=== PATIENT | female | born 1995 | race Caucasian/White ===

== ENCOUNTER 2017-03-20 03:37 | Emergency (ER) | payer OTHER | END 2017-03-20 06:28 | disposition home or self-care (01) | DX: O20.0 Threatened abortion (principal); Z3A.09 9 weeks gestation of pregnancy ==

== ENCOUNTER 2017-08-24 11:22 | Outpatient (CLI) | payer OTHER ==
[2017-08-24 12:10] LABS: GTT GLUCOSE,FASTING 77 mg/dL (70-100)
== END 2017-08-24 11:23 | disposition home or self-care (01) ==
LOC: LAB 11:22
PROVIDERS: ATTEND Registered Nurse
DX: Z36.89 Encounter for other specified antenatal screening (principal)
CPT/HCPCS: 36415; 82951; 86762

== ENCOUNTER 2017-09-12 14:55 | Outpatient (CLI) | payer OTHER | END 2017-09-12 14:56 | disposition home or self-care (01) | LOC: LAB.R 14:55 | PROVIDERS: ATTEND Nurse Practitioner Obstetrics & Gynecology | DX: R82.90 Unspecified abnormal findings in urine (principal) | CPT/HCPCS: 87086 ==

== ENCOUNTER 2017-09-25 08:00 | Outpatient (CLI) | payer OTHER | END 2017-09-25 08:01 | disposition home or self-care (01) | LOC: LAB.R 08:00 | PROVIDERS: ATTEND Nurse Practitioner Obstetrics & Gynecology | DX: Z36.85 Encounter for antenatal screening for Streptococcus B (principal) | CPT/HCPCS: 87081 ==

== ENCOUNTER 2017-10-26 01:27 | Inpatient (IN) | payer OTHER ==
[2017-10-26 04:11] LABS: BASOPHILS % (AUTO) 0.3 %; EOSINOPHILS # (AUTO) 0.2 10^3/uL (0.0-0.7); EOSINOPHILS % (AUTO) 1.4 %; HGB - HEMOGLOBIN 13.1 g/dL (12.0-16.0); LYMPHOCYTES # (AUTO) 2.8 10^3/uL (1.5-3.5); LYMPHOCYTES % (AUTO) 23.8 %; MEAN CORPUSCULAR HEMOGLOBIN 30.8 pg (27.0-31.0); MEAN CORPUSCULAR HGB CONC 33.7 g/dL (32.0-36.0); MEAN CORPUSCULAR VOLUME 91.4 fL (81.0-99.0); MEAN PLATELET VOLUME 7.6 fL (7.9-10.8); MONOCYTES % (AUTO) 8.9 %; NEUTROPHILS # (AUTO) 7.6 10^3/uL (1.5-6.6); NEUTROPHILS % (AUTO) 65.6 %; PLT - PLATELET COUNT 205 10^3/uL (130-450); RED BLOOD COUNT 4.26 10^6/uL (4.20-5.40); RED CELL DISTRIBUTION WIDTH 13.9 % (12.0-15.0); WHITE BLOOD COUNT 11.6 x10^3/uL (4.8-10.8)
--- NOTE | 2017-10-26 08:07 | HISTORY & PHYSICAL EXAMINATION ---
Admit History - Instructions [place]/Slash: -Left hand click circles element as positive or present. -Right hand click slashes element as negative or not present. - Visit Reason Visit Reason: Membranes rupture - : 1 Parity: 0 Premature: 0 Ectopic: 0 : 0 Care: positive: [facility] Risk/History: positive: None Complications This : positive: None Smoking Status: Never smoker - Mother's Labs Mother's Blood Type: positive: A Mother's RH: positive: Positive GBS: positive: Group B Step Negative Rubella Status: positive: Immune - Other Maternal History Other Maternal History: HPI: This 22yo at 40.3wks gestation by L=10wk U/S who present with spontaneous rupture of membranes. She reports a large gush of clear fluid 0043 on 10/26/2017. Upon evaluation she was noted to be 4/80/-2, and have grossly ruptured membranes. She was admitted to L&D for management. She reports pos movement, contractions every 5-8 minutes. 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 surgeries - none No hx abnormal paps PMH: anxiety Surg Hx: non Social Hx: to [place], never smoker, No IVDA or ETOH use Family Hx: Colon cancer - maternal GF, Stroke - mother >65yo Meds: PNV, ranitidine Allergies: NKA Physical Exam: Heart RRR w/o M/G/R, lungs CTAB Abdomen gravid, soft, nontender FHT's baseline 120s, moderate variability, + accels, no decels EFW 7.5lbs SVE 4/90/-2, soft, anterior, vertex SROM x 7hrs Labs: Blood type A pos, antibody neg Hgb 13.1, Hct 38.5, PLT 221 Rubella immune HIV non-reactive Hep B neg, Hep C neg, Hep A neg RPR non-reactive Genetic Testing: Serum integrated screen: neg 05/11/2017 1 hour GTT 132 3 hour GTT 77; 150; 117; 106 GBS negative Immunizations: Tdap 07/19/2017 Influenza 07/19/2017 Ultrasounds: 06/12/2017: FAS WNL, anterior placenta, grade 0, no previa, cervix closed 4.4cm in length, VENKATESH WNL 06/22/2017: 22 wks, RUQ pain U/S. Normal RUQ abdominal u/s. Mild R hydronephrosis, likely related to . Assessment: 22yo @ 40.3wks gestation by L=10wk U/S SROM x 7 hours GBS negative early labor Desires natural labor Desires future fertility Plan: Initiate pitocin per protocol Encouarged position changes Reevaluate in 4 hours or sooner PRN. Meds/Allgy - Home Medications Home Medications: Ambulatory Orders Medication Instructions Recorded Confirmed Pnv No.122/Iron/Folic Acid 1 tab ORAL DAILY 03/20/17 03/20/17 [ Multi Tablet] - Allergies Allergies/Adverse Reactions: Allergies Allergy/AdvReac Type Severity Reaction Status Date / Time No Known Drug Allergies Allergy Verified 03/20/17 03:48 Physical - Abdominal Exam Vital Signs: Temp Pulse Resp BP Pulse Ox 36.6 C 98 18 111/67 99 10/26/17 05:00 10/26/17 05:00 10/26/17 05:00 10/26/17 05:00 10/26/17 05:00
--- NOTE | 2017-10-26 08:19 | PROVIDER PROGRESS NOTE ---
Labor Progress Note - Uterine Monitoring Uterine Monitoring Mode: positive: External toco Contraction Frequency (min/apart): 3-6 Contraction Intensity: positive: Mild to moderate Uterine Resting Tone: positive: Soft - Monitoring Monitor Mode: positive: External ultrasound Heart Rate Baseline: 120 Heart Rate Variability: positive: Moderate (6-25 bmp) Accelerations: positive: Present, 15x15 Decelerations: positive: None - Vaginal Exam Dilation (in cm): 4 Effacement (%): 90 Station: -2 Cervical Position: Anterior - Labor Progress Note Labor Progress Note/Additional Text: S: Feeling contractions but minimal discomfort. She reports some anxiety about the discomforts of labor to come. Nervous about starting Pitocin but agrees and desires this is the best choice at this time. and MIL supportive at bedside. O: FHR baseline 120's, moderate variability, + accels, no decels. Contractions palpate moderate every 3-7 minutes lasting 50-90 seconds with soft resting tone. SVE 4/90/-2 A: 22yo @ 40.3wks gestation by L=10 SROM x 7hrs Early labor Cervix unchanged from admission P: Initiate pitocin per protocol - reviewed risks vs benefits and my recommendations with the patient and her family. Continuous monitoring Encouraged position changes and ambulation Reevaluate in 4 hours or sooner PRN.
[2017-10-26] MEDS: OXYTOCIN/SODIUM CHLORIDE 250 ML IV SCH (08:54)
[2017-10-26] MEDS: SODIUM CHLORIDE FLUSH 0.9% 10 ML SYRINGE IVP PRN ×2 (08:55→19:50)
[2017-10-26] MEDS: LACTATED RINGERS 1,000 ML IV SCH ×3 (08:55→22:50)
[2017-10-26] MEDS ORDERED: HYDROmorphone 1 MG/ML CARPUJECT IVP ONE (11:07)
[2017-10-26] MEDS ORDERED: fentaNYL 250 MCG/5 ML VIAL ONE (12:24)
[2017-10-26] MEDS ORDERED: BUPIVACAINE 0.75% MPF 30 ML VIAL ONE (12:24)
--- NOTE | 2017-10-26 13:14 | PROVIDER PROGRESS NOTE ---
Labor Progress Note - Uterine Monitoring Uterine Monitoring Mode: positive: External toco Contraction Frequency (min/apart): 2-3 Contraction Intensity: positive: Strong Uterine Resting Tone: positive: Soft - Monitoring Monitor Mode: positive: External ultrasound Heart Rate Baseline: 120 Heart Rate Variability: positive: Moderate (6-25 bmp) Accelerations: positive: Present, 15x15 Decelerations: positive: Early - Vaginal Exam Dilation (in cm): 6 Effacement (%): 90 Station: 0 Cervical Position: Anterior - Labor Progress Note Labor Progress Note/Additional Text: S: Feeling significant rectal pressure with contractions that feel like a bowel movement. She is currently laying comfortably in bed with epidural in place. Starting to experience relief from pain secondary to recent epidural placement. Reports feeling tired and relieved now that she has her epidural. and MIL supportive at the bedside. O: FHR baseline 120s, moderate variability, +accels, occasional early decels. Contractions palpate firm every 2-3 minutes lasting approximately 60 seconds. SVE 6/90/0, anterior A: 22yo @ 40.3wks gestation by L=10wk U/S Active labor SROM x 12 hours GBS neg Epidural in place for pain management P: Continue active management. Titrate pitocin per protocol. Anticipate spontaneous vaginal delivery Reevaluate in 2 hours or sooner PRN.
[2017-10-26] MEDS ORDERED: TERBUTALINE 1 MG/ML VIAL SUBQ ONE (15:18)
[2017-10-26] MEDS ORDERED: LACTATED RINGERS 1,000 ML IV ONE ×2 (16:05→16:46)
[2017-10-26] MEDS ORDERED: ceFAZolin 1 GM VIAL IV ONE (16:30)
[2017-10-26] MEDS ORDERED: OXYTOCIN 10 UNIT/ML VIAL IV ONE (16:30)
[2017-10-26] MEDS ORDERED: ONDANSETRON 4 MG/2 ML VIAL IVP ONE (16:30)
[2017-10-26] MEDS ORDERED: LIDOCAINE-MPF 2% 5 ML VIAL IM ONE (16:30)
[2017-10-26] MEDS ORDERED: fentaNYL 100 MCG/2 ML VIAL IVP ONE (16:30)
[2017-10-26] MEDS ORDERED: METOPROLOL 5 MG/5 ML VIAL IVP ONE (16:30)
[2017-10-26] MEDS ORDERED: ESMOLOL 100 MG/10 ML VIAL IVP ONE (16:30)
--- NOTE | 2017-10-26 17:40 | PROVIDER PROGRESS NOTE ---
Subjective - Subjective Subjective: Arrived at patient's bedside at approximately 1449 and an FSE was placed secondary to inability to distinctly differentiate maternal and heart rate. SVE revealed 7-8cm dilated/100/0. It became apparent at that time that the FHR pattern was demonstrating recurrent late decelerations into the 70's - 80's. Maternal O2 was placed, IV fluid was bolused, and she was rotated right, then left, and pitocin was turned off. Dr. Dunlap attending physician was called to the bedside. Terbutaline 0.25mg was given SQ at 0.25mg. Dr. Dunlap arrived at the bedside at 1523 and the OR team was called for a STAT delivery. Care was handed over to Dr. Dunlap attending physician whom appropriately consented the patient for delivery at that time. Objective - Vital Signs/Intake & Output Intake & Output: Intake & Output 10/23/17 10/24/17 10/25/17 10/26/17 23:59 23:59 23:59 23:59 Intake Total 540 Balance 540 - Lab Results Fish Bones: 10/26/17 03:10 Other Labs: Lab Results x24hrs 10/26/17 Range/Units 03:10 WBC 11.6 H (4.8-10.8) x10^3/uL RBC 4.26 (4.20-5.40) 10^6/uL Hgb 13.1 (12.0-16.0) g/dL Hct 38.9 (37.0-47.0) % MCV 91.4 (81.0-99.0) fL MCH 30.8 (27.0-31.0) pg MCHC 33.7 (32.0-36.0) g/dL RDW 13.9 (12.0-15.0) % Plt Count 205 (130-450) 10^3/uL MPV 7.6 L (7.9-10.8) fL Neut # 7.6 H (1.5-6.6) 10^3/uL Lymph # 2.8 (1.5-3.5) 10^3/uL [place] # 1.0 (0.0-1.0) 10^3/uL Eos # 0.2 (0.0-0.7) 10^3/uL Baso # 0.0 (0.0-0.1) 10^3/uL Absolute Nucleated RBC 0.01 x10^3/uL Nucleated RBC % 0.0 /100WBC
[2017-10-26] MEDS ORDERED: diphenhydrAMINE INJ 50 MG/ML VIAL IVP PRN ×2 (17:42→21:00)
[2017-10-26] MEDS ORDERED: SODIUM CHLORIDE FLUSH 0.9% 10 ML SYRINGE IVP PRN (17:42)
[2017-10-26] MEDS ORDERED: oxyCODONE 5 MG TABLET PO PRN (17:42)
[2017-10-26] MEDS ORDERED: ONDANSETRON 4 MG/2 ML VIAL IVP PRN (17:42)
[2017-10-26] MEDS ORDERED: IBUPROFEN 800 MG TABLET PO SCH (18:00)
--- NOTE | 2017-10-26 18:02 | OPERATIVE REPORT ---
Operative Report - General Admit Date: 10/26/17 Procedure Date: 10/26/17 Planned Procedure: LTC/S Pre-Op Diagnosis: Same Procedure Performed: Primary Low Transverse C/Section Post Op Diagnosis: LOP - Procedure Note Primary Surgeon: Norbert Dunlap MD Secondary Surgeon: Tiffanie Parkinson Anesthesia Provider: Kevin George Anesthesia Technique: Epidural Pathology: Placenta IV Fluids (mL): 1,500 Estimated Blood Loss (mL): 700 Drain/Tube Type: Other (Wound Vac)
[2017-10-26] MEDS: KETOROLAC 30 MG/ML VIAL IV SCH (19:50)
[2017-10-26] MEDS: SODIUM CHLORIDE FLUSH 0.9% 10 ML SYRINGE IVP SCH ×4 (19:50→22:16)
[2017-10-26] MEDS ORDERED: HYDROmorphone 1 MG/ML SYRINGE IVP PRN (20:59)
[2017-10-26] MEDS ORDERED: MORPHINE 2 MG/ML CARPUJECT IVP PRN (21:00)
[2017-10-26] MEDS ORDERED: diphenhydrAMINE 25 MG CAPSULE PO PRN (21:00)
[2017-10-26] MEDS ORDERED: NALOXONE 0.4 MG/ML VIAL IVP PRN (21:00)
[2017-10-26] MEDS ORDERED: NALBUPHINE 20 MG/ML AMP IVP PRN (21:00)
[2017-10-26] MEDS ORDERED: METOCLOPRAMIDE 10 MG/2 ML VIAL IVP PRN (21:00)
[2017-10-26] MEDS: ACETAMINOPHEN 500 MG TABLET PO SCH (21:19)
[2017-10-26] MEDS: SIMETHICONE CHEW 80 MG TABLET PO SCH (22:09)
[2017-10-27] MEDS ORDERED: IOPAMIDOL-300 100 ML VIAL ONE (00:03)
--- NOTE | 2017-10-27 00:04 | PROVIDER PROGRESS NOTE ---
Subjective - General Admit Date: 10/26/17 Procedure Date: 10/26/17 Post Op Days: 1 - Review of Systems Cardiovascular: positive: Chest pain (Pt C/O CP onset about 2237. Naldo dyspnea.) Psychiatric: positive: Anxiety (Chronic anxoiuity) Objective - Patient Data Reviewed Vital Signs: Yes Vital Signs: Vital Signs x48h Temp Pulse Pulse Resp BP Pulse Ox 10/26/17 23:54 120 H 97/57 L 100 10/26/17 23:30 133 H 87/48 L 100 10/26/17 23:15 124 H 99/56 L 100 10/26/17 23:00 129 H 16 103/56 L 100 10/26/17 22:59 124 H 107/59 L 98 10/26/17 22:52 127 H 28 H 100/60 99 10/26/17 22:40 125 H 24 93/53 L 98 10/26/17 21:00 36.8 C 126 H 16 91/51 L 99 10/26/17 20:00 120 H 16 103/60 100 10/26/17 19:30 36.8 C 127 H 16 105/61 100 10/26/17 19:15 122 H 120 H 16 108/59 L 100 10/26/17 19:00 120 H 16 113/61 100 10/26/17 18:46 36.7 C 121 H 16 109/62 10/26/17 18:30 127 H 16 106/61 98 10/26/17 18:09 121 H 16 121/67 100 10/26/17 17:56 100 10/26/17 17:50 99 10/26/17 17:45 100 10/26/17 17:40 99 10/26/17 17:35 99 10/26/17 17:30 99 10/26/17 17:25 99 Weight: Weight 10/25/17 10/26/17 10/27/17 23:59 23:59 23:59 Weight (kg) 95.254 kg Intake & Output: Intake and Output Totals x24h 10/25/17 10/26/17 10/27/17 23:59 23:59 23:59 Intake Total 1540 Output Total 400 Balance 1140 - Lab Results Lab Results: 10/26/17 03:10 Other Lab Results: Lab Results x24hrs 10/26/17 Range/Units 03:10 WBC 11.6 H (4.8-10.8) x10^3/uL RBC 4.26 (4.20-5.40) 10^6/uL Hgb 13.1 (12.0-16.0) g/dL Hct 38.9 (37.0-47.0) % MCV 91.4 (81.0-99.0) fL MCH 30.8 (27.0-31.0) pg MCHC 33.7 (32.0-36.0) g/dL RDW 13.9 (12.0-15.0) % Plt Count 205 (130-450) 10^3/uL MPV 7.6 L (7.9-10.8) fL Neut # 7.6 H (1.5-6.6) 10^3/uL Lymph # 2.8 (1.5-3.5) 10^3/uL Scott # 1.0 (0.0-1.0) 10^3/uL Eos # 0.2 (0.0-0.7) 10^3/uL Baso # 0.0 (0.0-0.1) 10^3/uL Absolute Nucleated RBC 0.01 x10^3/uL Nucleated RBC % 0.0 /100WBC - Current Medications Current Medications: Current Medications Generic Name Dose Route Start Last Admin Trade Name Freq PRN Reason Stop Dose Admin Acetaminophen 1,000 mg 10/26/17 18:00 10/26/17 21:19 Tylenol PO Not Given Q8H DANIEL Oxytocin/Sodium Chloride 250 mls @ 1 mls/hr 10/26/17 08:00 10/26/17 08:54 Pitocin/Sodium Chloride IV 1 milliunit/min TITR DANIEL 1 mls/hr Protocol Administration 1 MILLIUNIT/MIN Lactated Ringer's 1,000 mls @ 100 mls/hr 10/26/17 18:00 10/26/17 22:50 Lr IV 150 mls/hr .Q10H DANIEL Administration Ibuprofen 800 mg 10/26/17 18:00 10/26/17 21:15 Motrin PO Not Given Q6H DANIEL Ketorolac Tromethamine 30 mg 10/26/17 18:00 10/26/17 19:50 Toradol Inj IV 10/27/17 12:01 30 mg Q6H DANIEL Administration Simethicone 80 mg 10/26/17 22:00 10/26/17 22:09 Mylicon PO 80 mg TID DANIEL Administration Sodium Chloride 10 ml 10/26/17 02:20 10/26/17 19:50 Normal Saline Flush 0.9% IVP 10 ml PRN PRN Administration NEEDED PER PROVIDER ORDERS Sodium Chloride 10 ml 10/26/17 06:00 10/26/17 22:15 Normal Saline Flush 0.9% IVP Not Given Q8HR DANIEL Sodium Chloride 10 ml 10/26/17 22:00 10/26/17 22:16 Normal Saline Flush 0.9% IVP Not Given Q8HR DANIEL - Physical Exam General Appearance: positive: No acute distress, Alert Respiratory: positive: Chest non-tender, No respiratory distress, Breath sounds nml Cardiovascular: positive: Regular rate & rhythm, No murmur, No gallop Extremities: negative: Calf tenderness, Ismael's sign/cords Impression/Plan - Problem List Problem List: Pt is a 22 yo ,SP C/S 1600 today. EKG Sinus tac. Hx of sinus tac all day to day. Good urine out put. Will do CT angio. R/O PE.
[2017-10-27] MEDS: SODIUM CHLORIDE FLUSH 0.9% 10 ML SYRINGE IVP PRN ×2 (00:19→01:42)
[2017-10-27 00:26] LABS: BASOPHILS % (AUTO) 0.1 %; EOSINOPHILS % (AUTO) 0.2 %; LYMPHOCYTES # (AUTO) 1.5 10^3/uL (1.5-3.5); LYMPHOCYTES % (AUTO) 12.8 %; MEAN CORPUSCULAR HEMOGLOBIN 31.2 pg (27.0-31.0); MEAN CORPUSCULAR HGB CONC 34.1 g/dL (32.0-36.0); MEAN CORPUSCULAR VOLUME 91.4 fL (81.0-99.0); MONOCYTES # (AUTO) 0.9 10^3/uL (0.0-1.0); MONOCYTES % (AUTO) 7.3 %; NEUTROPHILS # (AUTO) 9.5 10^3/uL (1.5-6.6); NEUTROPHILS % (AUTO) 79.6 %; PLT - PLATELET COUNT 152 10^3/uL (130-450); RED BLOOD COUNT 3.54 10^6/uL (4.20-5.40); WHITE BLOOD COUNT 11.9 x10^3/uL (4.8-10.8)
[2017-10-27 00:36] LABS: CALCIUM 8.7 mg/dL (8.5-10.3); CREATININE 0.5 mg/dL (0.4-1.0)
[2017-10-27] MEDS ORDERED: IOPAMIDOL-300 100 ML VIAL IVP ONE (01:01)
[2017-10-27] MEDS ORDERED: GI COCKTAIL 120 ML BOTTLE PO PRN (01:31)
[2017-10-27] MEDS: KETOROLAC 30 MG/ML VIAL IV SCH ×3 (01:41→14:16)
[2017-10-27 02:01] LABS: TROPONIN I < 0.04 ng/mL (<0.49)
[2017-10-27 02:03] LABS: CREATINE KINASE MB 0.7 ng/mL (0.6-6.3)
--- NOTE | 2017-10-27 02:06 | CT Preliminary Report ---
Exam: CT CHEST ANGIO (PE) IMPRESSION: Negative pulmonary CT angiogram. No pulmonary emboli. [facility] SITE ID: [id number]
--- NOTE | 2017-10-27 02:19 | CT Report ---
EXAM: CT ANGIOGRAM CHEST EXAM DATE: 10/27/2017 01:01 AM. CLINICAL HISTORY: Substernal chest pain post section. COMPARISON: None. TECHNIQUE: Routine helical imaging was performed through the chest in the pulmonary arterial phase. I V Contrast: Yes. Reconstructions: Coronal 3-D MIP reconstructions.Sagittal and coronal. In accordance with CT protocol optimization, one or more of the following dose reduction techniques w ere utilized for this exam: automated exposure control, adjustment of mA and/or KV based on patient s ize, or use of iterative reconstructive technique. FINDINGS: Pulmonary Arteries: Technically adequate for evaluation through the segmental arteries. No evidence f or acute or chronic pulmonary emboli. Lungs/Pleura: No pneumonia, suspicious nodules, or edema. No effusions or pneumothorax. Mediastinum: No acute aortic syndrome. No cardiac enlargement. No adenopathy. Upper Abdomen: Unremarkable with exception of postoperative pneumoperitoneum. Other: None. IMPRESSION: Negative pulmonary CT angiogram. No pulmonary emboli. [facility] Referring Provider Line: [phone] SITE ID: [id number]
--- NOTE | 2017-10-27 05:01 | OPERATIVE REPORT ---
DATE OF SERVICE: 10/26/2017 Physician: Norbert Dunlap MD PREOPERATIVE DIAGNOSES 1. A 40-week gestation. 2. Spontaneous rupture of membranes. 3. Repetitive deep decelerations with late decelerations. POSTOPERATIVE DIAGNOSES 1. A 40-week gestation. 2. Spontaneous rupture of membranes. 3. Repetitive deep decelerations with late decelerations. NAME OF PROCEDURE: Primary low transverse section. SURGEON: Norbert Dunlap MD WOOD SCIENCE PROFESSOR: Tiffanie Parkinson, Certified Nurse Electrical Electronics Engineer ANESTHESIA: Epidural with Kevin George. ESTIMATED BLOOD LOSS: 700 mL. FINDINGS: Live female infant, Apgars 9 and 9, left occiput posterior, clear amniotic fluid. PROCEDURE: Following adequate epidural anesthesia, the patient was in the supine position with a roll under her right hip. SCDs were placed. A Ann catheter was placed and she was administered 3 grams of Ancef preoperatively. At this point, timeout was performed, and then a Pfannenstiel incision was carried down through subcutaneous tissue to the fascia. The fascia was incised transversely then, using both blunt and sharp dissection, it was freed from rectus abdominis and pyramidalis. The rectus was then split along the midline. Peritoneum was entered high. Care was taken to avoid injury to bowel or bladder. At this point, the incision was carried superiorly and inferiorly. A bladder retractor was placed and the bladder flap was developed using both blunt and sharp dissection. The low transverse uterine incision was accomplished using a #10 blade and bandage scissors. At this point, the amniotic membranes were ruptured, noted to be clear. The head of the was lifted out of the pelvis and delivered. The oropharynx was bulb suctioned. The remainder of the was delivered without difficulty. The cord was doubly clamped, divided, and the infant was handed to the nurse who was standing by. At this point, cord blood samples were obtained and , because the infant was vigorous, no cord gases were obtained. The placenta was manually delivered. The uterus was exteriorized, wrapped in a moist lap, and cleansed in the internal portion with a dry lap. The lower portion of the incision was grasped with ring forceps. Following this, the incision was closed using 0 Vicryl in a running locking suture. This was imbricated with #0 Vicryl. There was some difficulty with some bleeding at the left side of the incision, so this area first enforced with several sutures of 0 Vicryl. Good hemostasis was observed. A moist lap was then placed over this incision. The uterus was tilted forward. The cul -de-sac was irrigated free of any clots. Prior to this, an estimated blood loss was obtained. The uterus was then delivered back in the abdominal cavity. The gutters were both bilaterally irrigated and the peritoneum was closed using 2-0 Vicryl. The fascia itself was closed using looped PDS and then subcutaneous tissue was closed using 3-0 Vicryl. The incision itself was closed using Monocryl subcuticular, and then Mastisol and Steri-Strips were applied. A wound VAC was then applied. There was some difficulty to seal it at the inferior border. However , this responded to Mastisol, as well as reinforcement of the incision. At this point, the procedure was terminated. The patient was taken to Recovery in stable condition. Sponge and needle counts were correct. TD: 10/27/2017 04:53 ODALIS
[2017-10-27] MEDS: LACTATED RINGERS 1,000 ML IV SCH ×2 (05:11→18:16)
[2017-10-27] MEDS: ACETAMINOPHEN 500 MG TABLET PO SCH (05:43)
--- NOTE | 2017-10-27 06:03 | CONSULTATION NOTE ---
DATE OF SERVICE: 10/27/2017 Physician: Ann Root MD Consultation was requested from the cottage parent, Dr. Norbert Dunlap. REASON FOR CONSULTATION: To evaluate the patient for acute onset of chest pain and sustained tachycardia. HISTORY OF PRESENT ILLNESS AND HOSPITAL COURSE: The patient is a pleasant, 22- year-old, white female who was admitted on October 26 under the [facility] service, following spontaneous rupture of her membranes at about 40 weeks' gestation, and subsequently underwent C- section on October 26, due to heart rate decelerations on pitocin. was completed and reportedly it was an uncomplicated procedure with not much blood loss. Notably, even prior to the procedure and throughout the past 2 days' hospital stay, the patient remained tachycardic with heart rate around 110-120. Overnight, around midnight on October 26, I was called by Dr. Dunlap to evaluate this patient for chest pain. The patient developed a somewhat sudden onset of chest pain a couple of hours prior. She localized the pain to the mid epigastric area. The pain was dull, achy and constant. The patient did not appear anxious, but I was told that she does have history of anxiety. Interviewing her, she denied any associated symptoms such as shortness of breath and, other than the chest pain, she had no complaints. Regarding history of gastroesophageal reflux, throughout her she did have frequent reflux symptoms and sometimes she had acid actually regurgitating up to her mouth. Today, she did not have reflux or vomiting, and she felt that the chest pain was somewhat different than the chest discomfort she experienced with the reflux. Notably, she did gain 40 pounds during her . On further interview, she reports no history of hypercoagulable state. No history of clotting or bleeding disorders in her family. However, she does report multiple miscarriages in almost all female relatives, such as her mother had several miscarriages and all her sisters had miscarriages as well. Again, they however, did not have blood clots. Reviewing her hospital records, she was started on Pitocin/oxytocin per the OB/ [employer] [employer] service prior to her . PAST MEDICAL HISTORY: Nonsignificant. OUTPATIENT MEDICATIONS: vitamins. INPATIENT MEDICATIONS: Reviewed per electronic medical record. SOCIAL HISTORY: The patient does not smoke, does not use substances. Her is in the [place]. FAMILY HISTORY: As mentioned above, positive for miscarriages, but negative for a diagnosed hypercoagulable state or clotting disorders. REVIEW OF SYMPTOMS: Please see pertinent positives listed above at history of present illness. The patient did not report additional complaints of the 12-point review. EKG showed sinus tachycardia without ischemic sign. PHYSICAL EXAMINATION VITAL SIGNS: Temperature 36.7 Celsius, heart rate between 120 and 130, blood pressure between 80/50 and 100/60, respiratory rate 18; oxygen saturation 100% on 4 liters nasal cannula, 98% on room air. GENERAL: The patient is a well-developed female who was sitting up in bed, was not in distress. SKIN: No jaundice, no pallor. MUSCULOSKELETAL: No calf tenderness. LYMPHATIC: No significant lymphedema. ABDOMEN: With a fresh , abdomen. No significant tenderness. CARDIOVASCULAR: S1, S2. Regular, tachycardia. I could not hear a pathologic murmur. RESPIRATORY: Clear to auscultation without wheezes or crackles. NEUROLOGIC: Alert, oriented, nonfocal. PSYCHIATRIC: Cooperative. ASSESSMENT AND PLAN AND RECOMMENDATIONS: The patient is a young female status post section, POD 1, who developed chest discomfort. Besides the chest discomfort, she was found with sinus tachycardia. The tachycardia has been persistent since her admission from October 26. Most likely possibility would be patient having gastroesophageal reflux-like symptoms and tachycardia and episodes of hypotension caused by oxytocin/Pitocin infusion. Considering, however, that could create a hypercoagulable state and the patient does have some risk factors in her history such as female family members with miscarriages which could point to hypercoagulable state or genetic disorder, there is a risk for this patient to have thromboembolic complication. Therefore, I discussed with Dr. Dunlap and recommended to proceed with CT angiography of the chest. Depending on the CT result, further plan will be discussed. In particular, if no pulmonary embolism, then I would treat for gastroesophageal reflux and, given the sustained tachycardia, I would also check cardiac markers. IV hydration is already provided. If pulmonary embolism is found, then obviously the patient will need to be anticoagulated, and risks and benefits regarding bleeding postsurgically was already discussed with Dr. Dunlap. Thank you, Dr. Dunlap, to invite us to participate in the care of this very nice patient. The medical service will follow and discuss further. The time I spent in this consultation was 35 minutes. TD: 10/27/2017 06:02 MTDD
[2017-10-27] MEDS: oxyCODONE 10 MG/0.5 ML SYRINGE PO PRN ×5 (06:09→22:38)
[2017-10-27] MEDS: SIMETHICONE CHEW 80 MG TABLET PO SCH ×3 (06:09→22:08)
[2017-10-27 06:34] LABS: BASOPHILS % (AUTO) 0.2 %; EOSINOPHILS # (AUTO) 0.1 10^3/uL (0.0-0.7); EOSINOPHILS % (AUTO) 0.6 %; HGB - HEMOGLOBIN 10.6 g/dL (12.0-16.0); LYMPHOCYTES # (AUTO) 1.5 10^3/uL (1.5-3.5); LYMPHOCYTES % (AUTO) 12.8 %; MEAN CORPUSCULAR HEMOGLOBIN 30.5 pg (27.0-31.0); MEAN CORPUSCULAR HGB CONC 33.3 g/dL (32.0-36.0); MEAN CORPUSCULAR VOLUME 91.6 fL (81.0-99.0); MEAN PLATELET VOLUME 7.2 fL (7.9-10.8); MONOCYTES # (AUTO) 1.1 10^3/uL (0.0-1.0); MONOCYTES % (AUTO) 9.2 %; NEUTROPHILS # (AUTO) 8.9 10^3/uL (1.5-6.6); NEUTROPHILS % (AUTO) 77.2 %; PLT - PLATELET COUNT 156 10^3/uL (130-450); RED BLOOD COUNT 3.46 10^6/uL (4.20-5.40); RED CELL DISTRIBUTION WIDTH 13.9 % (12.0-15.0); WHITE BLOOD COUNT 11.6 x10^3/uL (4.8-10.8)
--- NOTE | 2017-10-27 08:05 | CONSULTATION NOTE ---
Referring Provider Name of Referring Provider:: Dr. 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 - POLST Patient has POLST: No Meds/Allgy - Home Medications Home Medications: Ambulatory Orders Medication Instructions Recorded Confirmed Pnv No.122/Iron/Folic Acid 1 tab ORAL DAILY 03/20/17 03/20/17 [ Multi Tablet] - Allergies Allergies/Adverse Reactions: Allergies Allergy/AdvReac Type Severity Reaction Status Date / Time No Known Drug Allergies Allergy Verified 03/20/17 03:48 Exam - Vital Signs Vital Signs: Vital Signs x48h Temp Pulse Resp BP Pulse Ox 10/27/17 04:04 36.9 C 125 H 16 97/56 L 98 10/27/17 01:08 36.7 C 129 H 18 105/59 L 98 Conclusion/Plan - Lab Results Fish Bones: 10/27/17 06:26 10/27/17 00:15
[2017-10-27] MEDS: SODIUM CHLORIDE FLUSH 0.9% 10 ML SYRINGE IVP SCH ×6 (08:51→22:09)
[2017-10-27] MEDS: OXYTOCIN/SODIUM CHLORIDE 250 ML IV SCH (08:52)
--- NOTE | 2017-10-27 09:16 | PROVIDER PROGRESS NOTE ---
Subjective - Prog Note Date Prog Note Date: 10/27/17 Prog Note Time: 09:16 - Subjective Pt reports feeling: Improved Subjective: Janice continues to have mild tightness located at mid-substernal chest. She denies SOB, N/V, numbness, tingling, or a new cough. Patient was accompanied by S.O., and other family and was updated on negative findings. OVERNIGHT: Patient was improved overnight with staying in sinus rhythm around 90 bpm, so telemetry was discontinued. Hospitalist team will now sign off and we appreciate the consult. Current Medications - Current Medications Current Medications: Active Medications Acetaminophen (Tylenol) 960 mg PO Q8H DANIEL Last Admin: 10/27/17 14:14 Dose: 960 mg Diphenhydramine HCl (Benadryl Inj) 25 mg IVP Q6H PRN PRN Reason: ITCHING Diphenhydramine HCl (Benadryl Elixir) 25 mg PO Q6HR PRN PRN Reason: ITCHING Docusate Sodium (Colace Oral Soln) 100 mg PO BID DANIEL Oxytocin/Sodium Chloride (Pitocin/Sodium Chloride) 250 mls @ 1 mls/hr IV TITR DANIEL; 1 MILLIUNIT/MIN PRN Reason: Protocol Last Admin: 10/27/17 08:52 Dose: Not Given Lactated Ringer's (Lr) 1,000 mls @ 100 mls/hr IV .Q10H DANIEL Last Admin: 10/27/17 18:16 Dose: Not Given Ibuprofen (Motrin Oral Susp) 800 mg PO Q8HR PRN PRN Reason: PAIN Last Admin: 10/27/17 20:17 Dose: 800 mg Multi-Ingredient Mouthwash/Gargle () 30 ml PO Q4H PRN PRN Reason: Chest Pain Ondansetron HCl (Zofran Inj) 4 mg IVP Q4H PRN PRN Reason: Nausea / Vomiting Oxycodone HCl (Roxicodone Oral Soln) 5 mg PO Q4HR PRN PRN Reason: PAIN Last Admin: 10/27/17 18:14 Dose: 5 mg Ranitidine HCl (Zantac) 150 mg PO DAILY DANIEL Last Admin: 10/27/17 13:03 Dose: Not Given Simethicone (Mylicon) 80 mg PO TID [facility] Last Admin: 10/27/17 14:20 Dose: 80 mg Sodium Chloride (Normal Saline Flush 0.9%) 10 ml IVP PRN PRN PRN Reason: NEEDED PER PROVIDER ORDERS Last Admin: 10/27/17 01:42 Dose: 10 ml Sodium Chloride (Normal Saline Flush 0.9%) 10 ml IVP Q8HR [facility] Last Admin: 10/27/17 14:18 Dose: 10 ml Sodium Chloride (Normal Saline Flush 0.9%) 10 ml IVP PRN PRN PRN Reason: NEEDED PER PROVIDER ORDERS Sodium Chloride (Normal Saline Flush 0.9%) 10 ml IVP Q8HR [facility] Last Admin: 10/27/17 14:18 Dose: 10 ml Pnv No.122/Iron/Folic Acid [ Multi Tablet] 1 tab ORAL DAILY 03/20/17 Objective - Vital Signs/Intake & Output Reviewed Vital Signs: Yes Vital Signs: Vital Signs x48h Temp Pulse Resp BP Pulse Ox 10/27/17 04:04 36.9 C 125 H 16 97/56 L 98 Intake & Output: Intake & Output 10/24/17 10/25/17 10/26/17 10/27/17 23:59 23:59 23:59 23:59 Intake Total 1540 1202.5 Output Total 400 1685 Balance 1140 -482.5 - Objective General Appearance: positive: No acute distress, Alert, Anxious Eyes Bilateral: positive: Normal inspection, PERRL ENT: positive: ENT inspection nml, Pharynx nml, No signs of dehydration Neck: positive: Nml inspection, Thyroid nml, No JVD Respiratory: positive: Chest non-tender, No respiratory distress, Breath sounds nml Cardiovascular: positive: Regular rate & rhythm, No murmur, No gallop, Tachycardia Peripheral Pulses: 1+ Radial (R), 1+ Radial (L) Abdomen: positive: Tenderness, Guarding, Abnml bowel sounds Skin: positive: No rash, Warm, Dry Extremities: positive: Non-tender, Full ROM, Nml appearance, No pedal edema Neurologic/Psychiatric: positive: Oriented x3, CN's nml (2-12), Motor nml, Sensation nml, Mood/affect nml Reflexes: Bicep (R): 2+, Bicep (L): 2+ - Lab Results Fish Bones: 10/27/17 06:26 10/27/17 00:15 Other Labs: Lab Results x24hrs 10/27/17 10/27/17 10/27/17 Range/Units 06:26 06:15 00:15 WBC 11.6 H (4.8-10.8) x10^3/uL RBC 3.46 L (4.20-5.40) 10^6/uL Hgb 10.6 L (12.0-16.0) g/dL Hct 31.7 L (37.0-47.0) % MCV 91.6 (81.0-99.0) fL MCH 30.5 (27.0-31.0) pg MCHC 33.3 (32.0-36.0) g/dL RDW 13.9 (12.0-15.0) % Plt Count 156 (130-450) 10^3/uL MPV 7.2 L (7.9-10.8) fL Neut # 8.9 H (1.5-6.6) 10^3/uL Lymph # 1.5 (1.5-3.5) 10^3/uL [place] # 1.1 H (0.0-1.0) 10^3/uL Eos # 0.1 (0.0-0.7) 10^3/uL Baso # 0.0 (0.0-0.1) 10^3/uL Absolute Nucleated RBC 0.01 x10^3/uL Nucleated RBC % 0.1 /100WBC Sodium (135-145) mmol/L Potassium (3.5-5.0) mmol/L Chloride (101-111) mmol/L Carbon Dioxide (21-32) mmol/L Anion Gap (6-13) BUN (6-20) mg/dL Creatinine (0.4-1.0) mg/dL Estimated GFR (MDRD) (>89) Glucose (70-100) mg/dL Calcium (8.5-10.3) mg/dL Total Creatine Kinase (22-269) IU/L CK-MB (CK-2) 0.7 (0.6-6.3) ng/mL Troponin I 0.05 < 0.04 (<0.49) ng/mL 10/27/17 10/27/17 10/27/17 Range/Units 00:15 00:15 00:15 WBC 11.9 H (4.8-10.8) x10^3/uL RBC 3.54 L (4.20-5.40) 10^6/uL Hgb 11.0 L (12.0-16.0) g/dL Hct 32.3 L (37.0-47.0) % MCV 91.4 (81.0-99.0) fL MCH 31.2 H (27.0-31.0) pg MCHC 34.1 (32.0-36.0) g/dL RDW 14.0 (12.0-15.0) % Plt Count 152 (130-450) 10^3/uL MPV 7.0 L (7.9-10.8) fL Neut # 9.5 H (1.5-6.6) 10^3/uL Lymph # 1.5 (1.5-3.5) 10^3/uL [place] # 0.9 (0.0-1.0) 10^3/uL Eos # 0.0 (0.0-0.7) 10^3/uL Baso # 0.0 (0.0-0.1) 10^3/uL Absolute Nucleated RBC 0.00 x10^3/uL Nucleated RBC % 0.0 /100WBC Sodium 135 (135-145) mmol/L Potassium 3.8 (3.5-5.0) mmol/L Chloride 102 (101-111) mmol/L Carbon Dioxide 23 (21-32) mmol/L Anion Gap 10.0 (6-13) BUN 6 (6-20) mg/dL Creatinine 0.5 (0.4-1.0) mg/dL Estimated GFR (MDRD) 152 (>89) Glucose 139 H (70-100) mg/dL Calcium 8.7 (8.5-10.3) mg/dL Total Creatine Kinase 81 (22-269) IU/L CK-MB (CK-2) (0.6-6.3) ng/mL Troponin I (<0.49) ng/mL - Diagnostic Imaging Diagnostic Imaging Results: positive: Prelim report reviewed, Final report reviewed Assessment/Plan - Problem List (1) Postcesarean section Impression: Patient reportedly had a somewhat emergent and is recovering from that. Plan: Care to continue as per Primary OB provider. (2) Tachycardia Impression: Patient remained in a sinus rhythm, with heart rates from 80-130's. Plan: Continue to monitor on telemetry overnight. We will plan to sign off this case if all is well in the AM. (3) Chest pain, unspecified Impression: Patient originally had mid-sternal that did not radiate to her neck, shoulder, arms or face. She was given a GI cocktail, which had little effect. It was concluded that a contributing factor could have been heavy breathing during the last phase of labor, verses/ or in addition to ongoing anxiety related to the trauma of the unplanned . Plan: Continue to monitor and treat for anxiety with family support. Qualifiers: Chest pain type: chest pain on breathing Qualified Code(s): R07.1 - Chest pain on breathing; R07.81 - Pleurodynia
--- NOTE | 2017-10-27 10:42 | PROVIDER PROGRESS NOTE ---
Subjective - General Admit Date: 10/26/17 Procedure Date: 10/26/17 Post Op Days: 1 - Review of Systems Wound/Incisions: positive: Dressing dry and intact General: positive: No symptoms (CP resolved. Hospitalist workingup CP.) Cardiovascular: positive: Chest pain (Resolved) Gastrointestinal: positive: Flatus Psychiatric: positive: Anxiety (Chronic anxoiuity) Objective - Patient Data Reviewed Vital Signs: Yes Vital Signs: Vital Signs x48h Temp Pulse Pulse Resp BP BP Pulse Ox 10/27/17 10:20 36.7 C 114 H 16 90/46 L 99 10/27/17 04:04 36.9 C 125 H 16 97/56 L 98 Weight: Weight 10/25/17 10/26/17 10/27/17 23:59 23:59 23:59 Weight (kg) 95.254 kg Intake & Output: Intake and Output Totals x24h 10/25/17 10/26/17 10/27/17 23:59 23:59 23:59 Intake Total 1540 1202.5 Output Total 400 1685 Balance 1140 -482.5 - Lab Results Lab Results: 10/27/17 06:26 10/27/17 00:15 Other Lab Results: Lab Results x24hrs 10/27/17 10/27/17 10/27/17 Range/Units 06:26 06:15 00:15 WBC 11.6 H (4.8-10.8) x10^3/uL RBC 3.46 L (4.20-5.40) 10^6/uL Hgb 10.6 L (12.0-16.0) g/dL Hct 31.7 L (37.0-47.0) % MCV 91.6 (81.0-99.0) fL MCH 30.5 (27.0-31.0) pg MCHC 33.3 (32.0-36.0) g/dL RDW 13.9 (12.0-15.0) % Plt Count 156 (130-450) 10^3/uL MPV 7.2 L (7.9-10.8) fL Neut # 8.9 H (1.5-6.6) 10^3/uL Lymph # 1.5 (1.5-3.5) 10^3/uL [place] # 1.1 H (0.0-1.0) 10^3/uL Eos # 0.1 (0.0-0.7) 10^3/uL Baso # 0.0 (0.0-0.1) 10^3/uL Absolute Nucleated RBC 0.01 x10^3/uL Nucleated RBC % 0.1 /100WBC Sodium (135-145) mmol/L Potassium (3.5-5.0) mmol/L Chloride (101-111) mmol/L Carbon Dioxide (21-32) mmol/L Anion Gap (6-13) BUN (6-20) mg/dL Creatinine (0.4-1.0) mg/dL Estimated GFR (MDRD) (>89) Glucose (70-100) mg/dL Calcium (8.5-10.3) mg/dL Total Creatine Kinase (22-269) IU/L CK-MB (CK-2) 0.7 (0.6-6.3) ng/mL Troponin I 0.05 < 0.04 (<0.49) ng/mL 10/27/17 10/27/17 10/27/17 Range/Units 00:15 00:15 00:15 WBC 11.9 H (4.8-10.8) x10^3/uL RBC 3.54 L (4.20-5.40) 10^6/uL Hgb 11.0 L (12.0-16.0) g/dL Hct 32.3 L (37.0-47.0) % MCV 91.4 (81.0-99.0) fL MCH 31.2 H (27.0-31.0) pg MCHC 34.1 (32.0-36.0) g/dL RDW 14.0 (12.0-15.0) % Plt Count 152 (130-450) 10^3/uL MPV 7.0 L (7.9-10.8) fL Neut # 9.5 H (1.5-6.6) 10^3/uL Lymph # 1.5 (1.5-3.5) 10^3/uL [place] # 0.9 (0.0-1.0) 10^3/uL Eos # 0.0 (0.0-0.7) 10^3/uL Baso # 0.0 (0.0-0.1) 10^3/uL Absolute Nucleated RBC 0.00 x10^3/uL Nucleated RBC % 0.0 /100WBC Sodium 135 (135-145) mmol/L Potassium 3.8 (3.5-5.0) mmol/L Chloride 102 (101-111) mmol/L Carbon Dioxide 23 (21-32) mmol/L Anion Gap 10.0 (6-13) BUN 6 (6-20) mg/dL Creatinine 0.5 (0.4-1.0) mg/dL Estimated GFR (MDRD) 152 (>89) Glucose 139 H (70-100) mg/dL Calcium 8.7 (8.5-10.3) mg/dL Total Creatine Kinase 81 (22-269) IU/L CK-MB (CK-2) (0.6-6.3) ng/mL Troponin I (<0.49) ng/mL - Imaging Results Radiology Imaging: positive: Final report received (NO PE) - Current Medications Current Medications: Current Medications Generic Name Dose Route Start Last Admin Trade Name Freq PRN Reason Stop Dose Admin Oxytocin/Sodium Chloride 250 mls @ 1 mls/hr 10/26/17 08:00 10/27/17 08:52 Pitocin/Sodium Chloride IV Not Given TITR DANIEL Protocol 1 MILLIUNIT/MIN Lactated Ringer's 1,000 mls @ 100 mls/hr 10/26/17 18:00 10/27/17 05:11 Lr IV 100 mls/hr .Q10H DANIEL Administration Ketorolac Tromethamine 30 mg 10/26/17 18:00 10/27/17 08:55 Toradol Inj IV 10/27/17 12:01 30 mg Q6H DANIEL Administration Oxycodone HCl 5 mg 10/27/17 00:35 10/27/17 10:02 Roxicodone Oral Soln PO 5 mg Q4HR PRN Administration PAIN Ranitidine HCl 150 mg 10/27/17 02:00 10/27/17 01:31 Zantac PO 150 mg DAILY DANIEL Administration Simethicone 80 mg 10/26/17 22:00 10/27/17 06:09 Mylicon PO 80 mg TID DANIEL Administration Sodium Chloride 10 ml 10/26/17 02:20 10/27/17 01:42 Normal Saline Flush 0.9% IVP 10 ml PRN PRN Administration NEEDED PER PROVIDER ORDERS Sodium Chloride 10 ml 10/26/17 06:00 10/27/17 08:51 Normal Saline Flush 0.9% IVP 10 ml Q8HR DANIEL Administration Sodium Chloride 10 ml 10/26/17 22:00 10/27/17 08:56 Normal Saline Flush 0.9% IVP Not Given Q8HR DANIEL - Physical Exam Wound/Incisions: positive: Dressing dry and intact General Appearance: positive: No acute distress, Alert Respiratory: positive: Chest non-tender, No respiratory distress, Breath sounds nml Cardiovascular: positive: Regular rate & rhythm, No murmur Abdomen: positive: Nml bowel sounds, No distention, Tenderness (Incision), Mass (U-1) Extremities: negative: Calf tenderness, Ismael's sign/cords Impression/Plan - Problem List Problem List: S/P PLTC/S. Recovering IM working up CP.
[2017-10-27] MEDS: ACETAMINOPHEN 160 MG/5 ML SUSP UDC PO SCH ×2 (14:14→22:07)
[2017-10-27] MEDS: IBUPROFEN 100 MG/5 ML UDC PO PRN (20:17)
[2017-10-27] MEDS: DOCUSATE SODIUM 100 MG/10 ML UDC PO SCH (22:07)
[2017-10-28] MEDS: LACTATED RINGERS 1,000 ML IV SCH (01:51)
[2017-10-28] MEDS: oxyCODONE 10 MG/0.5 ML SYRINGE PO PRN ×5 (02:46→23:20)
[2017-10-28] MEDS: SODIUM CHLORIDE FLUSH 0.9% 10 ML SYRINGE IVP SCH (06:01)
[2017-10-28] MEDS: ACETAMINOPHEN 160 MG/5 ML SUSP UDC PO SCH ×3 (06:06→23:19)
[2017-10-28] MEDS: DOCUSATE SODIUM 100 MG/10 ML UDC PO SCH ×2 (11:58→21:22)
[2017-10-28] MEDS: IBUPROFEN 100 MG/5 ML UDC PO PRN ×2 (11:58→21:13)
[2017-10-28] MEDS: SIMETHICONE CHEW 80 MG TABLET PO SCH ×2 (11:59→18:32)
[2017-10-28] MEDS: SERTRALINE 50 MG TABLET PO SCH (11:59)
--- NOTE | 2017-10-28 11:59 | PROVIDER PROGRESS NOTE ---
Subjective - General Admit Date: 10/26/17 Procedure Date: 10/26/17 Post Op Days: 2 - Review of Systems Wound/Incisions: positive: Dressing dry and intact (vound Vac good seal) General: positive: No symptoms (CP resolved. Hospitalist workingup CP.) HEENT: positive: No symptoms Pulmonary: positive: No symptoms Cardiovascular: positive: Chest pain (Mildwith negative workup) Gastrointestinal: positive: Flatus Genitourinary: positive: No symptoms Psychiatric: positive: Anxiety (Chronic anxoiuity) Objective - Patient Data Reviewed Vital Signs: Yes Vital Signs: Vital Signs x48h Temp Pulse Resp BP Pulse Ox 10/28/17 07:20 36.6 C 99 16 116/68 99 10/28/17 04:57 36.5 C 103 H 16 111/66 99 10/28/17 04:12 36.7 C 99 16 97/58 L 100 Weight: Weight 10/26/17 10/27/17 10/28/17 23:59 23:59 23:59 Weight (kg) 95.254 kg Intake & Output: Intake and Output Totals x24h 10/26/17 10/27/17 10/28/17 23:59 23:59 23:59 Intake Total 1540 2202.5 Output Total 400 2635 Balance 1140 -432.5 - Lab Results Lab Results: 10/27/17 06:26 10/27/17 00:15 Other Lab Results: Lab Results x24hrs 10/27/17 10/27/17 Range/Units 12:00 12:00 Troponin I < 0.04 (<0.49) ng/mL TSH 3.67 (0.34-5.60) uIU/mL - Imaging Results Radiology Imaging: positive: Prelim report reviewed, Final report received - Current Medications Current Medications: Current Medications Generic Name Dose Route Start Last Admin Trade Name Freq PRN Reason Stop Dose Admin Acetaminophen 960 mg 10/27/17 14:00 10/28/17 06:06 Tylenol PO 960 mg Q8H DANIEL Administration Docusate Sodium 100 mg 10/27/17 21:00 10/27/17 22:07 Colace Oral Soln PO 100 mg BID DANIEL Administration Oxytocin/Sodium Chloride 250 mls @ 1 mls/hr 10/26/17 08:00 10/27/17 08:52 Pitocin/Sodium Chloride IV Not Given TITR [facility] Protocol 1 MILLIUNIT/MIN Lactated Ringer's 1,000 mls @ 100 mls/hr 10/26/17 18:00 10/28/17 01:51 Lr IV Not Given .Q10H [facility] Ibuprofen 800 mg 10/27/17 00:37 10/27/17 20:17 Motrin Oral Susp PO 800 mg Q8HR PRN Administration PAIN Oxycodone HCl 5 mg 10/27/17 00:35 10/28/17 06:03 Roxicodone Oral Soln PO 5 mg Q4HR PRN Administration PAIN Ranitidine HCl 150 mg 10/27/17 02:00 10/27/17 13:03 Zantac PO Not Given DAILY [facility] Simethicone 80 mg 10/26/17 22:00 10/27/17 22:08 Mylicon PO 80 mg TID DANIEL Administration Sodium Chloride 10 ml 10/26/17 02:20 10/27/17 01:42 Normal Saline Flush 0.9% IVP 10 ml PRN PRN Administration NEEDED PER PROVIDER ORDERS Sodium Chloride 10 ml 10/26/17 06:00 10/28/17 06:01 Normal Saline Flush 0.9% IVP 10 ml Q8HR DANIEL Administration Sodium Chloride 10 ml 10/26/17 22:00 10/27/17 22:09 Normal Saline Flush 0.9% IVP Not Given Q8HR [facility] - Physical Exam Wound/Incisions: positive: Dressing dry and intact General Appearance: positive: No acute distress, Alert Respiratory: positive: Chest non-tender, No respiratory distress, Breath sounds nml Cardiovascular: positive: Regular rate & rhythm, No murmur, No gallop Abdomen: positive: Non-tender, Nml bowel sounds, Mass (U-2) Back: negative: CVA tenderness (R), CVA tenderness (L) Skin: positive: Color nml, No rash, Warm, Dry Neurologic/Psychiatric: positive: Oriented x3 Impression/Plan - Problem List Problem List: POD #2 progressing well. Pt wants to stay an other day.
[2017-10-28] MEDS: diphenhydrAMINE ELIXIR 25 MG/10 ML UDC PO PRN (21:22)
[2017-10-29] MEDS: IBUPROFEN 100 MG/5 ML UDC PO PRN ×3 (06:31→21:26)
[2017-10-29] MEDS: oxyCODONE 10 MG/0.5 ML SYRINGE PO PRN ×4 (06:31→21:27)
[2017-10-29] MEDS: ACETAMINOPHEN 160 MG/5 ML SUSP UDC PO SCH ×2 (08:16→16:57)
[2017-10-29] MEDS: SIMETHICONE CHEW 80 MG TABLET PO SCH ×4 (08:17→16:57)
[2017-10-29] MEDS: DOCUSATE SODIUM 100 MG/10 ML UDC PO SCH ×2 (08:17→21:26)
--- NOTE | 2017-10-29 08:25 | PROVIDER PROGRESS NOTE ---
Subjective - Prog Note Date Prog Note Date: 10/29/17 Prog Note Time: 08:21 - Subjective Pt reports feeling: Improved Subjective: Patient sitting in bed, breast feeding. Patient had BM yesterday. Slight vaginal bleeding. Ambulating and tolerating a regular diet. Urinating without difficulty. Patient knowlegable of how to work the Prevena wound vac. Patient worried about baby's weight gain and jaundice. Objective - Vital Signs/Intake & Output Reviewed Vital Signs: Yes Vital Signs: Vital Signs x48h Temp Pulse Resp BP Pulse Ox 10/29/17 04:45 98.1 F 101 H 18 115/65 96 Intake & Output: Intake & Output 10/26/17 10/27/17 10/28/17 10/29/17 23:59 23:59 23:59 23:59 Intake Total 1540 2202.5 Output Total 400 2635 Balance 1140 -432.5 - Objective General Appearance: positive: No acute distress Eyes Bilateral: positive: Normal inspection Abdomen: positive: Non-tender (Prevena wound vac intact and working well) Skin: positive: Color nml Extremities: positive: Non-tender Neurologic/Psychiatric: positive: Oriented x3 (Anxious appearance) - Lab Results Fish Bones: 10/27/17 06:26 10/27/17 00:15 Assessment/Plan - Problem List (1) Postcesarean section Impression: 22 yo S/p 10/26/2017 primary CD for NRFHT's, POD #3 Normal recovery Has started Zoloft by Tiffanie Parkinson CNM [employer] for anxiety Will keep the patient for another night to monitor baby. Anticipate discharge to home tomorrow. Dr. Dunlap has already written out Rx. Will remove wound vac tomorrow prior to discharge to home. Return to [facility] in 2 weeks for a routine post-op visit.
[2017-10-29] MEDS: SODIUM CHLORIDE FLUSH 0.9% 10 ML SYRINGE IVP SCH ×7 (09:10→09:14)
[2017-10-29] MEDS: LACTATED RINGERS 1,000 ML IV SCH ×3 (09:10→09:14)
[2017-10-29] MEDS: OXYTOCIN/SODIUM CHLORIDE 250 ML IV SCH ×2 (09:10→09:11)
[2017-10-29] MEDS: SERTRALINE 50 MG TABLET PO SCH (12:31)
[2017-10-29] MEDS: diphenhydrAMINE ELIXIR 25 MG/10 ML UDC PO PRN (18:12)
--- NOTE | 2017-10-29 19:49 | PROVIDER PROGRESS NOTE ---
Subjective - Prog Note Date Prog Note Date: 10/29/17 Prog Note Time: 19:47 - Subjective Pt reports feeling: Worse Subjective: Called by RN. Patient complaining of itching by her wound vac. Took benadryl last night. Objective - Vital Signs/Intake & Output Vital Signs: Vital Signs x48h Temp Pulse Resp BP Pulse Ox 10/29/17 17:02 98.1 F 96 18 105/69 99 Intake & Output: Intake & Output 10/26/17 10/27/17 10/28/17 10/29/17 23:59 23:59 23:59 23:59 Intake Total 1540 2202.5 Output Total 400 2635 Balance 1140 -432.5 - Objective General Appearance: positive: No acute distress Abdomen: positive: Non-tender (Redness on lateral sides of Tagaderm. Wound vac removed. No blistering yet at areas of redness.) - Lab Results Fish Bones: 10/27/17 06:26 10/27/17 00:15 Assessment/Plan - Problem List (1) Postcesarean section Impression: 22 yo S/p primary CD 10/26/2017, POD #3 Normal recovery Discharge to home tomorrow Routine care
[2017-10-30] MEDS: ACETAMINOPHEN 160 MG/5 ML SUSP UDC PO SCH ×3 (02:49→10:34)
[2017-10-30] MEDS: oxyCODONE 10 MG/0.5 ML SYRINGE PO PRN ×3 (02:50→13:19)
[2017-10-30] MEDS ORDERED: IBUPROFEN 100 MG/5 ML UDC ONE ×2 (05:35→05:37)
[2017-10-30] MEDS: IBUPROFEN 100 MG/5 ML UDC PO PRN ×2 (05:35→13:12)
[2017-10-30] MEDS: SODIUM CHLORIDE FLUSH 0.9% 10 ML SYRINGE IVP SCH ×6 (07:53→08:24)
[2017-10-30] MEDS: LACTATED RINGERS 1,000 ML IV SCH ×2 (07:54→08:21)
[2017-10-30] MEDS: OXYTOCIN/SODIUM CHLORIDE 250 ML IV SCH (08:16)
[2017-10-30] MEDS: SIMETHICONE CHEW 80 MG TABLET PO SCH ×2 (08:22→12:38)
[2017-10-30] MEDS: DOCUSATE SODIUM 100 MG/10 ML UDC PO SCH (08:22)
--- NOTE | 2017-10-30 08:47 | PROVIDER PROGRESS NOTE ---
Subjective - Prog Note Date Prog Note Date: 10/30/17 Prog Note Time: 08:45 - Subjective Pt reports feeling: Improved Subjective: Patient in bed, breast feeding baby on the [place]. very interactive, helping patient. Bleeding improving, urinating without difficulty. Pain controlled. Objective - Vital Signs/Intake & Output Vital Signs: Vital Signs x48h Temp Pulse Resp BP Pulse Ox 10/30/17 08:28 97.7 F 95 16 113/66 100 10/30/17 04:00 98.4 F 93 16 107/65 99 Intake & Output: Intake & Output 10/27/17 10/28/17 10/29/17 10/30/17 23:59 23:59 23:59 23:59 Intake Total 2202.5 Output Total 2635 Balance -432.5 - Objective General Appearance: positive: No acute distress Eyes Bilateral: positive: Normal inspection Abdomen: positive: Non-tender (Incision clean, dry and intact. Steristrips located on the lateral sides of the incision; midline Steristrips came off when Prevena wound vac removed.) - Lab Results Fish Bones: 10/27/17 06:26 10/27/17 00:15 Assessment/Plan - Problem List (1) Postcesarean section Impression: 22 yo S/p primary CD, POD#4 Discharge to home Follow up with Dr. Dunlap in 2 weeks for an incision check No lifting greater than a gallon of milk. Rx for home written by Dr. Dunlap Call for fevers, chills, abdominal pain or heavy vaginal bleeding Departure - Departure Disposition: 01 Home, Self Care Condition: Good
[2017-10-30] MEDS: diphenhydrAMINE ELIXIR 25 MG/10 ML UDC PO PRN (10:34)
[2017-10-30 12:12] VITALS: BP 110/64
[2017-10-30] MEDS: SERTRALINE 50 MG TABLET PO SCH (12:38)
--- NOTE | 2017-10-30 17:31 | Labor Flowsheet ---
Labor Flowsheet Datetime Report Generated by CPN: 10/30/2017 17:30 Datetime: 10/30/2017 08:28 VITAL SIGNS NBP Sys/Renee/Mean (mmHg): 113 : 66 : 77 Pulse: 99 LaborFlag: Labor Datetime: 10/29/2017 19:50 SpO2 (%): 99 Datetime: 10/26/2017 15:58 ASSESSMENT A Monitor Mode: Doppler FHR Baseline Rate : 140 (Annotations: FHTs 140-155) Datetime: 10/26/2017 15:50 Stage of : Labor Comments: to OR Datetime: 10/26/2017 15:48 Anesthesia Comments: M. George, [employer] @ BS for c/s dose. Datetime: 10/26/2017 15:40 UTERINE ACTIVITY Monitor Mode: External Frequency (min): 2-2.5 Quality: Strong Duration (sec): 60-80 Pattern: Normal: <= 5 Contractions in 10 Minutes Resting Tone (Palpate): Relaxed Variability: Moderate 6-25 bpm Accelerations: 15X15 Decelerations: Variable Category: Category II Datetime: 10/26/2017 15:23 Provider Reviewed Strip: Yes Patient Care Comments: Relinquished care to RN Seth COMMUNICATION Communication: Provider at Bedside Communication Comments: Dr. Giem Datetime: 10/26/2017 15:14 Tocolytics: Terbutaline 0.25mg Subcutaneous Datetime: 10/26/2017 14:58 Patient Position/Activity: Left Lateral Datetime: 10/26/2017 14:57 Actions for Decelerations: Pitocin Off Datetime: 10/26/2017 14:49 VAGINAL EXAM Dilatation (cm): 7.5 Effacement (%): 100 Station: 0 Exam by: CNM Iggy Datetime: 10/26/2017 14:05 Monitor Interventions for UA: [place] Adjusted Datetime: 10/26/2017 13:29 Anesthesia Level Check: T10- Umbilicus Datetime: 10/26/2017 13:22 Medication Comments: Per CNM Iggy, keep pitocin @5 Datetime: 10/26/2017 13:01 Respirations: 18 Temperature (C): 36.6 Datetime: 10/26/2017 13:00 Epidural Procedure Other: Pump Started Datetime: 10/26/2017 12:55 Vaginal Bleeding: None Cervix, Consistency: Soft Cervix, Position: Anterior Datetime: 10/26/2017 12:50 Epidural Procedure: Loading Dose Datetime: 10/26/2017 12:42 PROCEDURE TIME OUT Procedure Verify: Correct Patient Identity; Correct Side and Site are Marked; Accurate Procedure Co nsent Form; Agreement on Procedure to be Done; Correct Patient Position ANESTHESIA Anesthesia Plans: Epidural Epidural Positioning: Sitting Datetime: 10/26/2017 12:26 Monitor Interventions for FHR: Ultrasound Adjusted Datetime: 10/26/2017 11:16 Contraction Comments: rates pain 8/10 with ctx Datetime: 10/26/2017 10:29 MEDICATIONS Pitocin (milliunits): Increased to @ 4 Datetime: 10/26/2017 09:38 I/O Interventions: Up to BR Datetime: 10/26/2017 09:31 FHR Baseline Changes: No Baseline Change Datetime: 10/26/2017 09:02 Pain Presence: Intermittent Membrane Status: Ruptured Amniotic Fluid Color: Clear Amniotic Fluid Amount: Small Amniotic Fluid Odor: Normal MATERNAL ASSESSMENT Headache: Denies RUQ Epigastric Pain: Denies PATIENT CARE IV/Blood Work: IV Infusing per Order Oxygen Method: Room Air Datetime: 10/26/2017 08:57 Pitocin Checklist: At Least 1 Acceleration of 15 bpm x 15 Seconds in 30 Minutes or Adequate Variabi lity; No More than 1 Late Deceleration Occurred in Past 30 Minutes; No More than 2 Variable Decelerat ions > 60 Seconds in Duration and decreasing >60 bpm in 30 minutes; No More than 5 Uterine Contractio ns in 10 Minutes for any 20 Minute Interval; Uterus Palpates Soft between Contractions Datetime: 10/26/2017 03:00 PAIN Pain Scale: 2 Pain Type: Cramping Pain Location: Abdomen Pain Goal: 4 Pain Relief Measures: Comfort Measures Pain Coping: Talking Through Contractions; Declines Medication or Epidural
--- NOTE | 2017-10-31 20:14 | DISCHARGE SUMMARY ---
DATE OF ADMISSION: 10/26/2017 DATE OF DISCHARGE: 10/30/2017 DIAGNOSES ON ADMISSION 1. A 22-year-old G1, P0, with a 40-week 3-day intrauterine . 2. Spontaneous rupture of membranes. DIAGNOSES ON DISCHARGE 1. A 22-year-old, G1, P1-0-0-1, status post primary delivery on 2017 secondary to nonreassuring heart tones. 2. Resolved chest pain, most likely secondary to panic attack. 3. Normal recovery. BRIEF HISTORY: This is a patient of [facility], who presented to labor and delivery on 10/26/2017 with complaints of spontaneous rupture of membranes about 8 hours after presentation. Her initial cervical examination showed that she was 4 cm dilated, 80% effaced, and -2 station. Contractions occurred every 5-8 minutes. She was admitted to the hospital and started on Pitocin. She was given an epidural for pain control as per the patient desire. Patient, however, began to show concerning signs on the strip. There were late decelerations to the 70s and 80s and cervical examination revealed she was 7-8 cm dilated, 100% effaced and 0 station. Given that she was remote from delivery and in the face of nonreassuring heart tones, patient underwent a primary delivery. She delivered a viable female with Apgars of 9 and 9 at 1 and 5 minutes respectively. Left occiput was posterior. Estimated blood loss was 700 mL and she did receive a Prevena wound VAC for maximum incision healing. Her postoperative course was remarkable for complaints of chest pain that occurred on the evening of 10/26/2017. EKG revealed that she had sinus tachycardia. The internal medicine team was consulted and there was a negative workup. This chest pain spontaneously resolved. Telemetry was unremarkable. Otherwise, the patient's recovery was normal. She was ambulating and tolerating a regular diet. She was also urinating without difficulty and her pain was controlled with oral medications. Due to the Prevena wound VAC causing an early blistering effect, the wound VAC was removed on postop day #4, 10/30/2017. Patient was discharged to home on that day and was given prescriptions for pain medications as well as Colace. She was given instructions to see us at [facility] in 2 weeks for routine incision check, as well as a routine 6-week examination. She was instructed to call should she have any worsening fevers, chills, abdominal pain or vaginal bleeding. TD: 10/31/2017 20:12 MTDSandra
== END 2017-10-30 14:30 | disposition home or self-care (01) | DRG 766 ==
LOC: WFO 01:27 → FBP 01:28 → WFO 01:44 → FBP 01:45
PROVIDERS: ADMIT Nurse Practitioner Obstetrics & Gynecology; ATTEND Obstetrics & Gynecology
PROC: 10D00Z1 Extraction of Products of Conception, Low, Open Approach (ICD-10-PCS; principal; 2017-10-26 15:30)
DX: O99.344 Other mental disorders complicating childbirth (principal); F41.9 Anxiety disorder, unspecified; O99.62 Diseases of the digestive system complicating childbirth; K21.9 Gastro-esophageal reflux disease without esophagitis; O76 Abnormality in fetal heart rate and rhythm complicating labor and delivery; O90.89 Other complications of the puerperium, not elsewhere classified; R07.89 Other chest pain; R00.0 Tachycardia, unspecified; T78.8XXA Other adverse effects, not elsewhere classified, initial encounter; R23.8 Other skin changes; Y84.8 Other medical procedures as the cause of abnormal reaction of the patient, or of later complication, without mention of misadventure at the time of the procedure; Y92.230 Patient room in hospital as the place of occurrence of the external cause; Z3A.40 40 weeks gestation of pregnancy; Z37.0 Single live birth; Z84.89 Family history of other specified conditions
CPT/HCPCS: 36415; 71275; 80048; 82550; 82553; 84443; 84484; 85025; 93005; 93306; 99213

== ENCOUNTER 2017-10-31 23:05 | Emergency (ER) | payer OTHER ==
[2017-11-01] MEDS ORDERED: FUROSEMIDE 40 MG/4 ML VIAL IVP STA (00:33)
--- NOTE | 2017-11-01 00:33 | ED Physician Documentation ---
History of Present Illness - Stated complaint Stated Complaint: SWELLING/ - Chief complaint Chief Complaint: General - History obtained from History obtained from: Patient - History of Present Illness Timing: Today - Additonal information Additional information: 22-year-old female was discharged from the hospital yesterday after a section after four-day hospitalization. Today she is in the emergency department with swollen legs. She did have some pain in her calf while she was in the hospital on the right side this seems to have resolved now. Both of her legs are swollen equally and she does not have calf pain now. 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 - Present Medications Home Medications: Ambulatory Orders Medication Instructions Recorded Confirmed Pnv No.122/Iron/Folic Acid 1 tab ORAL DAILY 03/20/17 10/31/17 [ Multi Tablet] oxyCODONE [Roxicodone] 1 tab PO PRN 10/31/17 10/31/17 - Allergies Allergies/Adverse Reactions: Allergies Allergy/AdvReac Type Severity Reaction Status Date / Time adhesive AdvReac Intermediate Rash Verified 10/31/17 23:14 adhesive tape AdvReac Intermediate Rash Verified 10/31/17 23:14 - Social History Does the pt smoke?: No Smoking Status: Never smoker Does the pt drink ETOH?: Yes Does the pt have substance abuse?: No - Immunizations Immunizations are current?: Yes - POLST Patient has POLST: No PD ED PE NORMAL - Vitals Vital signs reviewed: Yes (tachy ) - General General: Alert and oriented X 3, Well developed/nourished, Other (The patient is teary eyed. ) - HEENT HEENT: Atraumatic, PERRL, EOMI - Neck Neck: Supple, no meningeal sign - Cardiac Cardiac: RRR, No murmur - Respiratory Respiratory: No respiratory distress, Clear bilaterally - Abdomen Abdomen: Soft, Non tender, Other (incision looks well ) - Back Back: No CVA TTP, No spinal TTP - Derm Derm: Normal color, Warm and dry, No rash - Extremities Extremities: No deformity, No calf tenderness / cord, Other (There is symetric lower extremity swelling) - Neuro Neuro: Alert and oriented X 3, No motor deficit, No sensory deficit, Normal speech Eye Opening: Spontaneous Motor: Obeys Commands Verbal: Oriented GCS Score: 15 - Psych Psych: Normal mood, Normal affect Results - Vitals Vitals: Vital Signs - 24 hr 10/31/17 11/01/17 23:10 01:53 Temperature 36.8 C Heart Rate 103 H 102 H Respiratory 16 15 Rate Blood Pressure 120/76 99/67 O2 Saturation 95 100 Oxygen O2 Source Room air - Labs Labs: Laboratory Tests 11/01/17 11/01/17 11/01/17 00:54 00:54 00:54 WBC 10.6 RBC 3.70 L Hgb 11.2 L Hct 33.8 L MCV 91.3 MCH 30.4 MCHC 33.2 RDW 13.6 Plt Count 255 MPV 6.1 L Neut # 6.8 H Lymph # 2.3 [place] # 1.0 Eos # 0.4 Baso # 0.1 Absolute Nucleated RBC 0.02 Nucleated RBC % 0.2 Sodium 137 Potassium 3.7 Chloride 104 Carbon Dioxide 26 Anion Gap 7.0 BUN 11 Creatinine 0.7 Estimated GFR (MDRD) 103 Glucose 94 Calcium 8.6 Total Bilirubin 0.5 AST 24 ALT 33 Alkaline Phosphatase 111 Troponin I < 0.04 Total Protein 6.4 L Albumin 2.4 L Globulin 4.0 Albumin/Globulin Ratio 0.6 L Lipase 14 L Urine Color Urine Clarity Urine pH Ur Specific [place] Urine Protein Urine Glucose (UA) Urine Ketones Urine Occult Blood Urine Nitrite Urine Bilirubin Urine Urobilinogen Ur Leukocyte Esterase Urine RBC Urine WBC Ur Squamous Epith Cells Urine Bacteria Ur Microscopic Review Urine Culture Comments 11/01/17 00:54 WBC RBC Hgb Hct MCV MCH MCHC RDW Plt Count MPV Neut # Lymph # [place] # Eos # Baso # Absolute Nucleated RBC Nucleated RBC % Sodium Potassium Chloride Carbon Dioxide Anion Gap BUN Creatinine Estimated GFR (MDRD) Glucose Calcium Total Bilirubin AST ALT Alkaline Phosphatase Troponin I Total Protein Albumin Globulin Albumin/Globulin Ratio Lipase Urine Color YELLOW Urine Clarity CLEAR Urine pH 6.0 Ur Specific [place] <=1.005 Urine Protein NEGATIVE Urine Glucose (UA) NEGATIVE Urine Ketones NEGATIVE Urine Occult Blood LARGE H Urine Nitrite NEGATIVE Urine Bilirubin NEGATIVE Urine Urobilinogen 0.2 (NORMAL) Ur Leukocyte Esterase TRACE H Urine RBC 6-10 H Urine WBC 4-5 Ur Squamous Epith Cells MOD Squamous H Urine Bacteria Few Ur Microscopic Review INDICATED Urine Culture Comments NOT INDICATED - Rads (name of study) duplex venous right Radiology: Prelim report reviewed (Impression: No evidence for deep venous thrombosis.), EMP read indepedently, See rad report Procedures - IVC sono (time) 0015 Bedside IVC sono: IVC measures (cm) (1.64), IVC collapsed c insp (cm) (1.09), Collapsibility index (0.335(normal)), Euvolemia PD MEDICAL DECISION MAKING - ED course Complexity details: reviewed old records, reviewed results, re-evaluated patient , considered differential, d/w patient ED course: 22-year-old female who has recently had a section done here at the hospital was discharged yesterday and she has swelling of her lower extremities today. She does not have shortness of breath and interrogation of the IVC shows a normally collapsing IVC. I interpreted this as evidence against post cardiomyopathy as a cause for this lady's leg swelling. I was able to review her chart and did not find excessive IV fluids used. I interpreted this as not fluid overload but fluid retention. She is treated with intravenous Lasix and a duplex ultrasound of the right lower extremity is undertaken to reassure us there is no evidence of DVT. The study is negative.She does diurese here in the emergency department. I have asked her to keep her feet elevated and reduce her level of activity she will be compliant with this. We will not place the patient on a course of furosemide as it would be easy to overshoot. I have asked her to give Dr. Fernandez a call tomorrow with an update. Departure - Departure Disposition: 01 Home, Self Care Clinical Impression: Fluid retention in legs Condition: Stable Instructions: ED Edema Legs Bilateral Follow-Up: SERGO DUEÑAS [Primary Care Provider] - Waleska Acharya DO [Provider Admit Priv/Credential] - Discharge Date/Time: 11/01/17 02:45
[2017-11-01 01:01] LABS: BILIRUBIN,URINE NEGATIVE (NEGATIVE); CLARITY,URINE CLEAR (CLEAR); GLUCOSE, URINE (UA) NEGATIVE (NEGATIVE); KETONES,URINE (UA) NEGATIVE (NEGATIVE); LEUKOCYTE ESTERASE, URINE TRACE (NEGATIVE); NITRITE,URINE NEGATIVE (NEGATIVE); OCCULT BLOOD,URINE LARGE (NEGATIVE); PROTEIN,URINE NEGATIVE (NEGATIVE); UROBILINOGEN,URINE 0.2 (NORMAL) E.U./dL (NORMAL)
[2017-11-01 01:06] LABS: BACTERIA,URINE Few /HPF (None Seen); SQUAMOUS EPITHELIAL CELL,UR MOD Squamous (<= Few)
[2017-11-01 01:07] LABS: BASOPHILS # (AUTO) 0.1 10^3/uL (0.0-0.1); EOSINOPHILS # (AUTO) 0.4 10^3/uL (0.0-0.7); EOSINOPHILS % (AUTO) 4.2 %; HGB - HEMOGLOBIN 11.2 g/dL (12.0-16.0); LYMPHOCYTES # (AUTO) 2.3 10^3/uL (1.5-3.5); LYMPHOCYTES % (AUTO) 21.4 %; MEAN CORPUSCULAR HEMOGLOBIN 30.4 pg (27.0-31.0); MEAN CORPUSCULAR HGB CONC 33.2 g/dL (32.0-36.0); MEAN CORPUSCULAR VOLUME 91.3 fL (81.0-99.0); MEAN PLATELET VOLUME 6.1 fL (7.9-10.8); MONOCYTES % (AUTO) 9.1 %; NEUTROPHILS # (AUTO) 6.8 10^3/uL (1.5-6.6); NEUTROPHILS % (AUTO) 64.3 %; PLT - PLATELET COUNT 255 10^3/uL (130-450); RED CELL DISTRIBUTION WIDTH 13.6 % (12.0-15.0); WHITE BLOOD COUNT 10.6 x10^3/uL (4.8-10.8)
[2017-11-01 01:12] LABS: ALBUMIN 2.4 g/dL (3.2-5.5); ALBUMIN/GLOBULIN RATIO 0.6 (1.0-2.2); BILIRUBIN,TOTAL 0.5 mg/dL (0.2-1.0); CALCIUM 8.6 mg/dL (8.5-10.3); CREATININE 0.7 mg/dL (0.4-1.0); TOTAL PROTEIN 6.4 g/dL (6.7-8.2)
[2017-11-01 01:54] VITALS: BP 99/67
--- NOTE | 2017-11-01 02:10 | Ultrasound Preliminary Report ---
Exam: US DUPLEX EXT VEINS RIGHT IMPRESSION: No evidence for deep venous thrombosis. [facility] SITE ID: [id number]
--- NOTE | 2017-11-01 02:10 | Ultrasound Report ---
EXAM: RIGHT LOWER EXTREMITY VENOUS ULTRASOUND EXAM DATE: 11/01/2017 01:36 AM. CLINICAL HISTORY: Right leg swelling, calf pain, history of recent . COMPARISON: None. TECHNIQUE: Real-time sonographic vascular imaging was performed by the wellhead pumper through the lower extremity utilizing both color-flow and Doppler spectral analysis. Multiple residential sales representative static alyssa ges were saved for review. FINDINGS: Common Femoral Vein (CFV): Normal. CFV-GSV Junction: Normal. Profunda Femoral Vein (PFV): Normal. Femoral Vein (FV) Prox: Normal. Femoral Vein (FV) Mid: Normal. Femoral Vein (FV) Dist: Normal. Popliteal Vein: Normal. Posterior Tibial Veins: Normal. Peroneal Veins: Normal. Other: None. IMPRESSION: No evidence for deep venous thrombosis. [facility] Referring Provider Line: [phone] SITE ID: [id number]
== END 2017-11-01 02:45 | disposition home or self-care (01) ==
LOC: ED 23:05
DX: O90.89 Other complications of the puerperium, not elsewhere classified (principal); R60.0 Localized edema
CPT/HCPCS: 80053; 81001; 81003; 83690; 84484; 85025; 87086; 96374; 99283; 99284

== ENCOUNTER 2017-11-03 09:23 | Outpatient (CLI) | payer OTHER | END 2017-11-03 09:24 | disposition home or self-care (01) | LOC: DI 09:23 | PROVIDERS: ATTEND Registered Nurse | DX: R60.1 Generalized edema (principal) | CPT/HCPCS: 93306 ==

== ENCOUNTER 2017-11-15 11:58 | Outpatient (CLI) | payer OTHER ==
[2017-11-15 14:21] LABS: BILIRUBIN,URINE NEGATIVE (NEGATIVE); GLUCOSE, URINE (UA) NEGATIVE (NEGATIVE); KETONES,URINE (UA) NEGATIVE (NEGATIVE); LEUKOCYTE ESTERASE, URINE NEGATIVE (NEGATIVE); NITRITE,URINE NEGATIVE (NEGATIVE); OCCULT BLOOD,URINE NEGATIVE (NEGATIVE); PH,URINE 5.5 PH (5.0-7.5); PROTEIN,URINE NEGATIVE (NEGATIVE); UROBILINOGEN,URINE 0.2 (NORMAL) E.U./dL (NORMAL)
[2017-11-15 14:22] LABS: CLARITY,URINE CLEAR (CLEAR)
[2017-11-15 14:28] LABS: RBC,URINE 0-5 /HPF (0-5); SQUAMOUS EPITHELIAL CELL,UR RARE Squamous (<= Few)
[2017-11-15 14:29] LABS: BACTERIA,URINE Rare /HPF (None Seen)
== END 2017-11-15 11:59 | disposition home or self-care (01) ==
LOC: LAB 11:58
PROVIDERS: ATTEND Obstetrics & Gynecology
DX: R30.0 Dysuria (principal)
CPT/HCPCS: 81001

== ENCOUNTER 2018-03-19 15:17 | Outpatient (CLI) | payer OTHER ==
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
== END 2018-03-19 15:18 | disposition home or self-care (01) ==
LOC: DI 15:17
PROVIDERS: ATTEND Family Medicine
DX: M54.2 Cervicalgia (principal)
CPT/HCPCS: 72141